=== PATIENT | female | born 2000 | race African-American/Black ===

== ENCOUNTER 2025-07-16 09:05 | Emergency (ER) | payer MEDICAID, OTHER ==
[~2025-07-16] VITALS: Ht 170.2 cm; Wt 61.4 kg
[2025-07-16 09:10] VITALS: BP 100/60; PULSE 81; RESP 18; TEMP 98.6; O2SAT 100
[2025-07-16] MEDS: AZITHROMYCIN 500 MG TABLET PO ONE (09:41)
[2025-07-16] MEDS: CefTRIAXone SODIUM 1 GM/VIAL IM ONE (09:41)
[2025-07-16] MEDS: LIDOCAINE/PF 1% 2 ML VIAL IM ONE (09:41)
== END 2025-07-16 09:58 | disposition home or self-care (01) ==
LOC: EMS 09:05
DX: N34.2 Other urethritis (principal); J45.909 Unspecified asthma, uncomplicated; F12.90 Cannabis use, unspecified, uncomplicated
CPT/HCPCS: 99283; 87491; 87591; 96372; J0456; J0696; J3490